=== PATIENT | female | born 1980 | race Caucasian/White ===

== ENCOUNTER 2020-02-26 21:23 | Emergency (ER) | payer OTHER ==
[~2020-02-26] VITALS: Ht 170.2 cm; Wt 60.9 kg
[~2020-02-26 21:23] MED LIST: ASPI-630 PO; ATOR40TA PO; MELA3TAB4 PO; SUMA50TA3 PO; TOPI25TA7 PO
--- NOTE | 2020-02-26 21:48 | PHYS DOC ---
Past Medical History Smoking Status: Never Smoker General Adult EDM: Chief Complaint: HEADACHE HPI: HPI: Patient is a 39 year old female who presents with complaints of bifrontal headache. Patient reports that she was at her home having dinner this evening with her when she began to have a headache. This started about 730 and was bifrontal in nature. It was associated with photophobia, nausea and over the next hour worsened. She denies any focal neurological changes. She reports that the headache is similar to her previous migraines but is so bad that she is finding it difficult to give a adequate history. She told me a couple of times that she just did not know in response to questions. 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 Review of Systems: Review of Systems: Constitutional: Denies fever or chills. [] Eyes: Denies change in visual acuity. [] HENT: Denies nasal congestion or sore throat. [] Respiratory: Denies cough or shortness of breath. [] Cardiovascular: Denies chest pain or edema. [] GI: Denies abdominal pain, nausea, vomiting, bloody stools or diarrhea. [] : Denies dysuria. [] Musculoskeletal: Denies back pain or joint pain. [] Integument: Denies rash. [] Neurologic: See HPI. [] Endocrine: Denies polyuria or polydipsia. [] Lymphatic: Denies swollen glands. [] Psychiatric: Denies depression or anxiety. [] Heart Score: Risk Factors: Risk Factors: DM, Current or recent (<one month) smoker, HTN, HLP, family history of CAD, obesity. Risk Scores: Score 0 - 3: 2.5% MACE over next 6 weeks - Discharge Home Score 4 - 6: 20.3% MACE over next 6 weeks - Admit for Clinical Observation Score 7 - 10: 72.7% MACE over next 6 weeks - Early Invasive Strategies Allergies: Allergies: Allergies Coded Allergies Type Severity Reaction Last Updated Verified No Known Drug Allergies 07/25/19 No Physical Exam: PE: Constitutional: Well developed, well nourished, no acute distress, non-toxic appearance. [] HENT: Normocephalic, atraumatic, bilateral external ears normal, oropharynx moist, no oral exudates, nose normal. [] Eyes: PERRLA, EOMI, conjunctiva normal, no discharge. [] Neck: Range of motion limited secondary to patient cooperation no tenderness, supple, no stridor. [] Cardiovascular:Heart rate regular rhythm, no murmur [] Lungs & Thorax: Bilateral breath sounds clear to auscultation [] Abdomen: Bowel sounds normal, soft, no tenderness, no masses, no pulsatile masses. [] Skin: Warm, dry, no erythema, no rash. [] Back: No tenderness, no CVA tenderness. [] Extremities: No tenderness, no cyanosis, no clubbing, ROM intact, no edema. [] Neurologic: Alert and oriented X 3, normal motor function, normal sensory function, no focal deficits noted. [] Psychologic: Affect normal, judgement normal, mood normal. [] Current Patient Data: Labs: Laboratory Tests Test 02/26/20 21:38 Glucose (Fingerstick) 108 mg/dL (70-99) H EKG: EKG: [] Radiology/Procedures: Radiology/Procedures: [] Course & Med Decision Making: Course & Med Decision Making Pertinent Labs and Imaging studies reviewed. (See chart for details) 2344-patient was seen and reevaluated. Patient reports that her headache has resolved for the most part and is seems to be coming back mildly at times. I discussed with her the results of her testing, treatment plan and reasons to return and need for follow-up. [] Erickson Disclaimer: Erickson Disclaimer: This electronic medical record was generated, in whole or in part, using a voice recognition dictation system. Departure Departure Impression: Primary Impression: Common migraine with intractable migraine Disposition: HOME, SELF-CARE Condition: IMPROVED Referrals: UNKNOWN PCP NAME (PCP) ELENA CASANOVA MD Patient Instructions: Migraine Headache Additional Instructions: See list of primary care providers to follow-up with. Consider using amitriptyline or propanolol for prophylaxis. This will have to be obtained through your PCP or neurologist. Justicifation of Admission Dx: Justifications for Admission: Justification of Admission Dx: N/A NIHSS Stroke Scale NIH Stroke Scale: NIH Stroke Scale Response (Comments) Value Level of Consciousness: 0 Alert/Responsive 0 LOC Questions: 0 Answers both correctly 0 LOC Commands: 0 Performs both tasks 0 Best Gaze: 0 Normal 0 Visual: 0 No visual loss 0 Facial Palsy: 0 Normal, symmetrical 0 Motor - Left Arm 0 No drift 0 Motor - Right Arm 0 No drift 0 Motor - Left Leg 0 No drift 0 Motor: Right Leg 0 No drift 0 Limb Ataxia: 0 Absent 0 Sensory: 1 Mid to moderate loss 1 Best Language: 0 Normal 0 Dysathria: 0 Normal 0 Extinction and Inattention: 0 Normal 0 Total 1 HAZEL TERRY MD Feb 26, 2020 21:48
--- NOTE | 2020-02-26 21:56 | RAD ---
CT HEAD WO CONTRAST Date: 02/26/2020 9:41 PM Clinical Indication: Reason: HEADACHE CODE STROKE / Spl. Instructions: / History: Comparison: 07/25/2019. Technique: 5 mm axial tomographic images were obtained of the head without contrast. These were viewed on brain and bone windows. One or more of the following dose reduction techniques were utilized: Automated exposure control (AEC), Adjustment of mA and/or kV according to patient size, Use of iterative reconstruction technique such as ASiR, CT scan done according to ALARA and image gently/image wisely Findings: No intra- or extra-axial mass or fluid collection. No acute hemorrhage. Ex vacuo dilatation of the left lateral ventricle. The roberts-white matter junction is normal. The subarachnoid cisterns are patent. Large area of encephalomalacia in the left MCA territory. The visualized paranasal sinuses are normal. The visualized portions of the orbits and globes are normal. The mastoid air cells are clear. The heel lift gouger topogram shows no lytic lesion or fracture. Impression: No acute hemorrhage or large territory roberts-white loss. Large area of left MCA territory encephalomalacia. Findings were called to Dr. Gates at 9:52 PM on 02/26/2020 FOR INTERNAL CODING PURPOSES RESULT CODE: (C) Electronically signed by: Kulwant Buckley MD (02/26/2020 9:53 PM) [facility]
[2020-02-26 22:00] LABS: BASO % 1 % (0-3); EOS # 0.1 x10^3/uL (0.0-0.7); EOS % 2 % (0-3); HEMATOCRIT 38.4 % (36.0-47.0); LYMPH # 2.9 x10^3/uL (1.0-4.8); LYMPH % 43 % (24-48); MEAN CORPUSCULAR HEMOGLOBIN 30 pg (25-35); MEAN CORPUSCULAR HGB CONC 34 g/dL (31-37); MEAN CORPUSCULAR VOLUME 90 fL (79-100); MONO # 0.5 x10^3/uL (0.0-1.1); MONO % 7 % (0-9); NEUT # 3.2 x10^3/uL (1.8-7.7); NEUT % 48 % (31-73); PLATELET COUNT 220 x10^3/uL (140-400); RED BLOOD COUNT 4.27 x10^6/uL (3.50-5.40); RED CELL DISTRIBUTION WIDTH 12.3 % (11.5-14.5); WHITE BLOOD COUNT 6.8 x10^3/uL (4.0-11.0)
[2020-02-26 22:09] LABS: PROTHROMBIN TIME PATIENT 13.6 SEC (11.7-14.0)
[2020-02-26 22:24] LABS: CALCIUM 9.1 mg/dL (8.5-10.1); CREATININE 0.9 mg/dL (0.6-1.0); GFR 70.1; POTASSIUM 3.6 mmol/L (3.5-5.1)
[2020-02-26 22:30] LABS: ALBUMIN 4.3 g/dL (3.4-5.0); ALBUMIN/GLOBULIN RATIO 1.1 (1.0-1.7); TOTAL BILIRUBIN 0.6 mg/dL (0.2-1.0); TOTAL PROTEIN 8.1 g/dL (6.4-8.2)
[2020-02-26] MEDS ORDERED: MAGNESIUM SULFATE 1GM 100 ML IV ONE (22:30)
[2020-02-26] MEDS ORDERED: diphenhydrAMINE 50 MG/ML VIAL IVP ONE (22:30)
[2020-02-26] MEDS ORDERED: IV NORMAL SALINE 500ML BAG 500 ML IV ONE (22:30)
[2020-02-26] MEDS ORDERED: KETOROLAC 30 MG/ML VIAL. IVP ONE (22:30)
[2020-02-26] MEDS ORDERED: methylPREDNISolone SOD SUCC PF 125 MG/2 ML VIAL. IV ONE (22:30)
[2020-02-26] MEDS ORDERED: METOCLOPRAMIDE HCL 10 MG/2 ML VIAL. IVP ONE (22:30)
--- NOTE | 2020-02-26 22:30 | RAD ---
CHEST AP ONLY INDICATION: Reason: STROKE PROTOCOL / Spl. Instructions: / History: . COMPARISON STUDY: None. FINDINGS: Lungs: Normal lung volume. No pulmonary mass or consolidation. The tracheobronchial tree and hilar structures are normal. Pleura: No pleural effusion or pneumothorax. Heart and Mediastinum: The cardiomediastinal silhouette is normal. The great vessels of the thorax are normal. Bones and Soft Tissues: The bones and soft tissues are within normal limits. IMPRESSION: No acute cardiopulmonary process. Electronically signed by: Kulwant Buckley MD (02/26/2020 10:27 PM) [facility]
[2020-02-26 23:16] LABS: BILIRUBIN,URINE NEGATIVE (NEG); CLARITY,URINE CLEAR; COLOR,URINE YELLOW; NITRITE,URINE NEGATIVE (NEG); PROTEIN,URINE NEGATIVE (NEG-TRACE); UROBILINOGEN,URINE 0.2 mg/dL (0.2 mg/dL)
[2020-02-26 23:22] LABS: BACTERIA,URINE 0 /HPF (0-FEW); RBC,URINE OCC /HPF (0-2); SQUAMOUS EPITHELIAL CELL,UR MOD /LPF; WBC,URINE OCC /HPF (0-4)
[2020-02-26 23:45] VITALS: BP 94/58
--- NOTE | 2020-02-27 12:25 | EKG ---
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
== END 2020-02-27 00:07 | disposition home or self-care (01) ==
LOC: ER 21:23
DX: G43.019 Migraine without aura, intractable, without status migrainosus (principal); H53.149 Visual discomfort, unspecified; R11.0 Nausea
CPT/HCPCS: 36415; 70450; 71045; 80053; 81001; 82962; 85025; 85610; 85730; 93005; 96365; 96375; 99285; J1200; J1885; J2765; J2930; J3475; J7040

== ENCOUNTER → 2020-11-24 | Outpatient (CLI) | payer OTHER ==
[~2020-11-24] MED LIST changes: +CARB100C4 PO
--- NOTE | 2020-11-24 13:00 | PDOC1 ---
INITIAL PAIN CONSULT DATE OF SERVICE: DOS: DATE: 11/24/20 TIME: 12:52 CHIEF COMPLAINT: Chief Complaint: Migraine headache with right facial pain Post stroke pain Trigeminal neuralgia right side HISTORY OF PRESENT ILLNESS: 40-year-old female presents with history of pain status post stroke in 2013. Patient has had right-sided symptoms since the stroke with significant pain in the upper extremity lower extremity sent to the torso chest front back anterior posterior aspects of the right side of the body since that time. Patient has abdul d migraine headaches as well been treated with several migraine headache medications including Topamax and amitriptyline as well as propranolol without significant decrease in pain patient was given a diagnosis of trigeminal neuralgia sometime in the past and has been on Tegretol with good results by about 50% improvement with the Tegretol most days. Patient reports that about 3 days at a week though she feels very lightheaded and off-balance after taking the Tegretol. Patient reports still significant facial pain especially pain around to the ear on the right side no specific disturbances in vision but very significant pain along with the classic migraine headache symptoms that she is having on the right side. Patient reports her disability rating 0-10 10 being the worst is a 5 in all categories family home responsibilities recreation occupation social activity sexual behavior life support activities and self-care activities. Patient is had no other formal therapies or treatments at this time. 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, atrial septal defect status post repair 2014 PREVIOUS SURGERIES: Past Surgical Hx: Atrial septal defect repair in 2014 CURRENT MEDICATIONS: Current Meds: Active Scripts Medications Dose Route/Sig Max Daily Dose Days Date Category Carbamazepine 100 Mg Cpmp.12hr 2 Cap PO BID 30 11/24/20 Reported Imitrex (Sumatriptan Succinate) 50 Mg Tablet 0.5 Tab PO Q8H PRN 30 07/27/19 Rx Aspirin 81 Mg Tab.chew 1 Tab PO BID 07/25/19 Reported Lipitor (Atorvastatin Calcium) 40 Mg Tablet 1 Tab PO QHS 07/25/19 Reported ALLERGIES; Allergies: Coded Allergies: No Known Drug Allergies (Unverified , 07/25/19) FAMILY HISTORY: Family Hx: Depression in patient's mother SOCIAL HISTORY: Social Hx: Patient does not drink alcohol does not smoke or use any illegal illicit or recreational drugs is lives with her spouse has 4 children living home lives locally in [place] REVIEW OF SYSTEMS: ROS: Positive for those items mentioned in history of present illness, all systems are reviewed, otherwise negative ,and are complete full and well-documented on patient's chart. PHYSICAL EXAM: VS: Blood pressure is 145/82 pulse 74 respirations 16 temperature 98.0 F height is 5 foot 7 inches weight is 148 pounds PE: PHYSICAL EXAMINATION: GENERAL: The patient is awake, alert, oriented, appropriate, very pleasant demeanor HEENT: Shows normocephalic, atraumatic. Extraocular movements are intact and symmetrical. Pupils equal round reactive to light and accommodation. Oral cavity: Mucous membranes moist and pink. Dentition is intact. NECK: Shows anterior throat supple without palpable lymphadenopathy noted. Swallow reflex symmetrical. Full rotation cervical spine without difficulty including far lateral rotation past 45 degrees closer to 90 degrees well is full extension full forward flexion without pain reported. CHEST: Shows normal on inspection. Breath sounds are clear bilaterally, no rales rhonchi or wheezes auscultated. HEART: Shows S1, S2 clear. No murmurs auscultated. ABDOMEN: Soft, nontender, nondistended. No palpable organomegaly is noted. BACK: Shows spine grossly in the midline. Normal-appearing cervical lordotic curvature. There is normal thoracic kyphosis, some minor flattening of the lumbar lordotic curvature. Lumbar paraspinous muscles show symmetrical on inspection, on palpation shows no significant tenderness throughout. The patient has good rotational motion of the lumbar spine, both laterally as well as extension and flexion without significant difficulty. No tenderness over the spinous processes, sacrum or sacroiliac regions. EXTREMITIES: Lower extremities show deep tendon reflexes 2+ in the patellar and tendo calcaneus tendons. Motor exam is 5 on a scale of 5 with right dorsiflexion, extension, quadriceps and hamstring flexion and 5/5 on the left. Peripheral pulses are 1 posterior tibial. No peripheral edema is noted bilaterally. Lower extremities are warm and dry to touch, equal in color and appearance. Upper extremity show deep tendon reflexes 2+ in the bicep and tricep tendons motor exam strong with master cook strength rated 5 out of 5 as is bicep and tricep flexion bilaterally. Peripheral pulses are 2+ radial no edema is present bilateral upper extremities. Skin: Normal turgor no bruises rashes sores or other lesions. IMPRESSION: Impression: 40-year-old female with approximate 1 year history increasing facial pain, right-sided Migraine headache right-sided Trigeminal neuralgia right-sided Post stroke pain right sided Plan: Options were discussed with the patient patient's spouse who accompanied her visit today. We discussed various medication management as well as therapies and interventional techniques. Patient would like to pursue interventional techniques we discussed trigeminal nerve block as well as sphenop alatine ganglion blocks. We will have patient return after preauthorization for his right-sided sphenopalatine ganglion block. In the meantime patient will continue with carbamazepine as prescribed and may move to twice daily dosing if side effects allow. MIKAYLA CRABTREE MD November 24, 2020 13:00
== END | disposition home or self-care (01) ==
LOC: PNCL 11:08
PROVIDERS: ATTEND Anesthesiology
DX: G43.809 Other migraine, not intractable, without status migrainosus (principal); G50.0 Trigeminal neuralgia; E78.00 Pure hypercholesterolemia, unspecified; J45.909 Unspecified asthma, uncomplicated; Z86.73 Personal history of transient ischemic attack (TIA), and cerebral infarction without residual deficits; Z87.74 Personal history of (corrected) congenital malformations of heart and circulatory system; Z79.899 Other long term (current) drug therapy; Z98.890 Other specified postprocedural states; Z79.82 Long term (current) use of aspirin
CPT/HCPCS: 99205; G0463

== ENCOUNTER → 2020-12-07 | Outpatient (CLI) | payer OTHER ==
[~2020-12-07] MED LIST changes: +LIDOCAINE 2% VISCOUS 15 ML SOLUTION. ONE; +SERT25TA PO
--- NOTE | 2020-12-07 13:16 | PDOC ---
Progress Note - Pain Clinic Date of Service: DOS: DATE: 12/07/20 TIME: 13:08 Diagnosis: Dx: Trigeminal neuralgia with post stroke pain Atypical facial pain Migraine headache History or Present Illness: HPI: 40-year-old female returns in follow-up status post initial evaluation preauthorization for right sphenopalatine ganglion block. Patient is obtained this with like to proceed report still significant facial pain on the right side as previously also some right-sided weakness in the upper and lower extremity secondary to previous CVA. Patient reports no new motor or sensory deficits no new findings or changes. Patient rates her pain as 8 on scale 10 is worse over the past week 5 on average to its least and is a 5 today. Patient scribes the pain is off and on but intense can be shooting tight stabbing cramping and burning and severe. Physical Exam: VS: Blood pressure is 120/89 pulse 85 respirations 18 temperature 98.0 F weight is 146 pounds PE: PHYSICAL EXAMINATION: GENERAL: The patient is awake, alert, oriented, appropriate, very pleasant demeanor HEENT: Shows normocephalic, atraumatic. Extraocular movements are intact and symmetrical. Pupils are equal round reactive to light and accommodation. Oral cavity: Mucous membranes moist and pink. Dentition is intact. Only mild tenderness with palpation over the right zygomatic arch without radiation. NECK: Shows anterior throat supple without palpable lymphadenopathy noted. Swallow reflex symmetrical. Full rotation cervical spine without significant difficulty or limitation. ABDOMEN: Soft, nontender, nondistended. No palpable organomegaly is noted. No rebound or guarding demonstrated. BACK: Shows spine grossly in the midline. Normal-appearing cervical lordotic cu rvature. There is slightly increased thoracic kyphosis, some minor flattening of the lumbar lordotic curvature. EXTREMITIES: Upper extremities show deep tendon reflexes 2+ in the biceps and triceps tendons. Motor exam is 5 on a scale of 5 with right steward/stewardess smoke room strength, biceps and triceps flexion and 5/5 on the left. Peripheral pulses are 2+ radial. No peripheral edema is noted bilaterally. Upper extremities are warm and dry. SKIN: Shows warm and dry, good turgor. No edema. No sores, rashes or bruising throughout. Procedure: Procedure: Options were discussed with the patient. Patient's old chart was reviewed as her current medication regimen updated current review of systems updated today as well. We will proceed with a transnasal right-sided sphenopalatine ganglion block today. Risk were discussed including but not limited to bleeding infection possibility of spread of local anesthetic and numbness side effects of local anesthetic as well as poor results regarding pain control. Patient understands wished to proceed. Patient will return to clinic in approximately 2 weeks for follow-up, was counseled as to return appointment activity level and side effects to be aware of. Medication Injected: Med Injected: Patient supine position using nasal swabs cotton-tipped and 2% viscous lidocaine swabs were soaked in lidocaine and x2 inserted via the right nares past the turbinates in a perpendicular angle to the table to the posterior aspect of the nasopharyngeal sinus. Additional 2% viscous lidocaine was then applied to the probe stick x3 over a 25-minute period. After 25 minutes, nasal swabs were removed. Patient tolerated the procedure well and had no immediate complications. Condition at Discharge: Condition at Discharge: Condition at discharge stable, patient alert the procedure well and had no complications. MIKAYLA CRABTREE MD December 07, 2020 13:16
--- NOTE | 2020-12-07 13:17 | PDOC4 ---
PROCEDURE Procedure Patient was consented for right sided sphenopalatine ganglion block, transnasal approach. Risks are discussed including not limited to bleeding infection possibility of spread of local anesthetic and numbness side effects of local anesthetic and poor results regarding pain control. Patient understands wished to proceed. Patient supine position using nasal swabs cotton-tipped and 2% viscous lidocaine swabs were soaked in lidocaine and x2 inserted via the right nares past the turbinates in a perpendicular angle to the table to the posterior aspect of the nasopharyngeal sinus. Additional 2% viscous lidocaine was then applied to the probe stick x3 over a 25-minute period. After 25 minutes, nasal swabs were removed. Patient tolerated the procedure well and had no immediate complications. MIKAYLA CRABTREE MD December 07, 2020 13:16
== END | disposition home or self-care (01) ==
LOC: PNCL 10:56
PROVIDERS: ATTEND Anesthesiology
DX: G50.0 Trigeminal neuralgia (principal); G50.1 Atypical facial pain; G43.909 Migraine, unspecified, not intractable, without status migrainosus; E78.00 Pure hypercholesterolemia, unspecified; J45.909 Unspecified asthma, uncomplicated; Z86.73 Personal history of transient ischemic attack (TIA), and cerebral infarction without residual deficits; Z79.899 Other long term (current) drug therapy; Z98.890 Other specified postprocedural states; Z79.82 Long term (current) use of aspirin; Z88.8 Allergy status to other drugs, medicaments and biological substances
CPT/HCPCS: 64505

== ENCOUNTER 2021-02-28 18:53 | Emergency (ER) | payer OTHER ==
[~2021-02-28] VITALS: Ht 170.2 cm; Wt 65.4 kg
[~2021-02-28 18:53] MED LIST changes: -LIDOCAINE 2% VISCOUS 15 ML SOLUTION. ONE
[2021-02-28] MEDS ORDERED: ONDANSETRON PF 4 MG/2 ML VIAL. ONE (19:20)
[2021-02-28 19:30] LABS: BASO % 1 % (0-3); EOS # 0.1 x10^3/uL (0.0-0.7); EOS % 2 % (0-3); HEMATOCRIT 38.1 % (36.0-47.0); HEMOGLOBIN 13.1 g/dL (12.0-15.5); LYMPH # 2.5 x10^3/uL (1.0-4.8); LYMPH % 42 % (24-48); MEAN CORPUSCULAR HEMOGLOBIN 32 pg (25-35); MEAN CORPUSCULAR HGB CONC 34 g/dL (31-37); MEAN CORPUSCULAR VOLUME 92 fL (79-100); MONO # 0.4 x10^3/uL (0.0-1.1); MONO % 7 % (0-9); NEUT % 49 % (31-73); PLATELET COUNT 213 x10^3/uL (140-400); RED BLOOD COUNT 4.15 x10^6/uL (3.50-5.40); RED CELL DISTRIBUTION WIDTH 12.3 % (11.5-14.5)
[2021-02-28] MEDS ORDERED: ONDANSETRON PF 4 MG/2 ML VIAL. IVP ONE ×2 (19:30→19:45)
--- NOTE | 2021-02-28 19:36 | RAD ---
Exam: CT head INDICATION: Headache TECHNIQUE: Sequential axial images through the head were obtained without the administration of IV co ntrast. Exposure: One or more of the following in the visualized dose reduction techniques were utilized for this examination: 1. Automated exposure control 2. Adjustment of the MA and/or KV according to patient size 3. Use of iterative of reconstructive technique Comparisons: 07/26/2019 FINDINGS: No focal parenchymal lesion or hemorrhage is identified. There is no midline shift or sulcal effaceme nt. Chronic left MCA infarct is again seen. No acute vascular territory infarction is identified. Burris-wh ite distinction is preserved. The ventricular system is within normal limits without compression hydrocephalus. The basal cisterns are well maintained. The visualized portions of the paranasal sinuses and mastoid air cells are well-pneumatized. No acute fractures. IMPRESSION: No acute intracranial abnormality. FOR INTERNAL CODING PURPOSES Critical result: Findings discussed with Jimy at 02/28/2021 7:31 PM. RESULT CODE: (C) Electronically signed by: Arie Moran MD (02/28/2021 7:34 PM) [facility]
[2021-02-28 19:37] LABS: CALCIUM 8.6 mg/dL (8.5-10.1); CREATININE 0.8 mg/dL (0.6-1.0); GFR 79.9; POTASSIUM 3.9 mmol/L (3.5-5.1)
[2021-02-28 19:43] LABS: ALBUMIN 4.1 g/dL (3.4-5.0); ALBUMIN/GLOBULIN RATIO 1.2 (1.0-1.7); TOTAL BILIRUBIN 0.2 mg/dL (0.2-1.0); TOTAL PROTEIN 7.4 g/dL (6.4-8.2)
[2021-02-28] MEDS ORDERED: KETOROLAC 30 MG/ML VIAL. IVP ONE (19:45)
[2021-02-28] MEDS ORDERED: IOHEXOL 350 MG/ML 100 ML VIAL. IV ONE (19:45)
[2021-02-28] MEDS ORDERED: CONTRAST GIVEN. MC PRN (19:45)
--- NOTE | 2021-02-28 19:58 | RAD ---
CTA head and neck with contrast dated 02/28/2021 Comparison: Noncontrast head CT dated same day. CTA dated 07/27/2019. CLINICAL INDICATION: Headache Technique: CTA of the head and neck was acquired following the intravenous administration of 75 cc Omnipaque 350 . Thin cut coronal and sagittal MIPS reconstructions and 3-D rotational reconstruction. One or more of the following individualized dose reduction techniques were utilized for this examinat ion: 1. Automated exposure control 2. Adjustment of the mA and/or kV according to patient size 3. Use of iterative reconstruction technique. Carotid Stenosis calculations for CT, MR, and conventional angiography are based upon measurements of the distal ICA diameter in accordance with the NASCET methodology. Stenosis calculations for carotid ultrasound studies are derived from validated velocity criteria which are known to correlate with th e NASCET methodology. FINDINGS: Study is limited due to diminished contrast bolus. Aortic arch is normal in caliber. Arch anatomy is standard. Bilateral subclavian arteries and vertebral arteries are patent. The right vertebral artery is somewhat hypoplastic relative to the left side. No intimal flap or focal stenosis to the skull ba se. Intradural vertebral arteries are patent. Basilar artery is patent. Bilateral skein dyer are small but grossly patent. The common carotid arteries are patent. No significant calcific or soft plaque at the bilateral carot id bifurcation. The right ICA is patent to the skull base. There is long segment high-grade narrowing of the left ICA just beyond the bifurcation, estimated at 70-80% stenosis. The vessel is narrowed to the skull base and there may be a small intraluminal web just proximal to the area of narrowing. Fin dings are similar to prior study. The petrous and cavernous internal carotids are not well evaluated due to poor propagation of contras t bolus. The cavernous left ICA is small and poorly visualized but is likely not significant changed from prior study. There is some flow within the supraclinoid segments with filling of the LUIS ALFREDO and MCA branches. Patent anterior communicating artery. The distal vessels are not well evaluated. Imaging the brain shows focal wedge-shaped zone of low density in the MCA distribution on the left wi th some ex vacuo dilatation of the left ventricle, unchanged. No new areas of altered attenuation. Du ral venous sinuses are grossly patent. Visualized soft tissue structures are unremarkable. Limited images of lung apices are clear. No signi ficant soft tissue abnormality. IMPRESSION: 1. High-grade narrowing of the cervical left internal carotid artery throughout its course to the [facility] base, estimated at 70-80% stenosis. This is similar to prior study. 2. The intracranial vasculature is not well evaluated due to poor propagation of contrast bolus. High -grade stenosis of the cavernous left ICA is probably unchanged. There is some flow distally into the MCA and LUIS ALFREDO branches. 3. Vertebral basilar system is patent and the right carotid system appears to be patent. 4. Remote MCA distribution infarct on the left Electronically signed by: Elian Aguilar MD (02/28/2021 7:56 PM) [facility]
--- NOTE | 2021-02-28 20:25 | PHYS DOC ---
Past Medical History Past Medical History: CVA, High Cholesterol, Migraines Additional Past Medical Histor: ARTERIAL DISSECTION, Past Surgical History: Other Additional Past Surgical Histo: "HOLE PATCHED BETWEEN ATRIUMS OF HEART IN 2015" Smoking Status: Never Smoker Alcohol Use: None General Adult EDM: Chief Complaint: NEURO SYMPTOMS/DEFICITS HPI: HPI: Patient is a 40 year old female with past medical history of migraine headaches and CVA with residual paresthesia without focal weakness presents for evaluation of headache. Patient states around 1500 hrs. sudden onset of severe frontal headache. Patient states pain is progressed to become worse since onset. Patient has associated nausea and photophobia. Patient states she has a sensation of weakness in her right lower extremity. Patient arrived by private vehicle she ambulated into the ER with a normal steady gait. On exam I do not see any focal neurological weakness. She does not have a facial droop or s lurred speech she does not have any drift in her extremities. Residual symptoms from previous CVA-- Chonic paresthesia and dysarthia. DIRECTOR PHYSICAL Patient took Ibuprofen 400mg and Asprin. Requesting pain medications that do not sedate. NIH 2--- No new findings. CT without contrast discussed with radiologist and negative. CTA no acute change-- no large vessel occlusion Review of Systems: Review of Systems: Constitutional: Denies fever or chills. [] Eyes: Denies change in visual acuity. [] HENT: Denies nasal congestion or sore throat. [] Respiratory: Denies cough or shortness of breath. [] Cardiovascular: Denies chest pain or edema. [] GI: Denies abdominal pain, nausea, vomiting, bloody stools or diarrhea. [] : Denies dysuria. [] Musculoskeletal: Denies back pain or joint pain. [] Integument: Denies rash. [] Neurologic: positive headache, positive paresthesia, MARY focal weakness or sensory changes. [] Endocrine: Denies polyuria or polydipsia. [] Lymphatic: Denies swollen glands. [] Psychiatric: Denies depression or anxiety. [] Heart Score: C/O Chest Pain: N/A Risk Factors: Risk Factors: DM, Current or recent (<one month) smoker, HTN, HLP, family history of CAD, obesity. Risk Scores: Score 0 - 3: 2.5% MACE over next 6 weeks - Discharge Home Score 4 - 6: 20.3% MACE over next 6 weeks - Admit for Clinical Observation Score 7 - 10: 72.7% MACE over next 6 weeks - Early Invasive Strategies Current Medications: Current Medications Medications (Trade) Dose Ordered Sig/Kelvin Start Time Stop Time Status Last Admin Dose Admin Aspirin (Aspirin Chewable) 324 mg 1X ONCE 02/28/21 20:30 02/28/21 20:31 Info (CONTRAST GIVEN -- Rx MONITORING) 1 each PRN DAILY PRN 02/28/21 19:45 03/02/21 19:44 Iohexol (Omnipaque 350 Mg/ml) 75 ml 1X ONCE 02/28/21 19:45 02/28/21 19:46 DC 02/28/21 19:44 75 ML Ketorolac Tromethamine (Toradol 30mg Vial) 30 mg 1X ONCE 02/28/21 19:45 02/28/21 19:46 DC Ondansetron HCl (Zofran) 4 mg 1X ONCE 02/28/21 19:45 02/28/21 19:46 DC Allergies: Allergies: Allergies Coded Allergies Type Severity Reaction Last Updated Verified No Known Drug Allergies 07/25/19 No Physical Exam: PE: Constitutional: Well developed, well nourished, no acute distress, non-toxic appearance. [] HENT: Normocephalic, atraumatic, bilateral external ears normal, oropharynx moist, no oral exudates, nose normal. [] Eyes: PERRLA, EOMI, conjunctiva normal, no discharge. [] Neck: Normal range of motion, no tenderness, supple, no stridor. [] Cardiovascular:Heart rate regular rhythm, no murmur [] Lungs & Thorax: Bilateral breath sounds clear to auscultation [] Abdomen: Bowel sounds normal, soft, no tenderness, no masses, no pulsatile masses. [] Skin: Warm, dry, no erythema, no rash. [] Back: No tenderness, no CVA tenderness. [] Extremities: No tenderness, no cyanosis, no clubbing, ROM intact, no edema. [] Neurologic: Alert and oriented X 3, normal motor function, normal sensory function, no focal deficits noted. [] Psychologic: Affect normal, judgement normal, mood normal. [] Current Patient Data: Labs: Laboratory Tests Test 02/28/21 19:05 White Blood Count 6.0 x10^3/uL (4.0-11.0) Red Blood Count 4.15 x10^6/uL (3.50-5.40) Hemoglobin 13.1 g/dL (12.0-15.5) Hematocrit 38.1 % (36.0-47.0) Mean Corpuscular Volume 92 fL (79-100) Mean Corpuscular Hemoglobin 32 pg (25-35) Mean Corpuscular Hemoglobin Concent 34 g/dL (31-37) Red Cell Distribution Width 12.3 % (11.5-14.5) Platelet Count 213 x10^3/uL (140-400) Neutrophils (%) (Auto) 49 % (31-73) Lymphocytes (%) (Auto) 42 % (24-48) Monocytes (%) (Auto) 7 % (0-9) Eosinophils (%) (Auto) 2 % (0-3) Basophils (%) (Auto) 1 % (0-3) Neutrophils # (Auto) 3.0 x10^3/uL (1.8-7.7) Lymphocytes # (Auto) 2.5 x10^3/uL (1.0-4.8) Monocytes # (Auto) 0.4 x10^3/uL (0.0-1.1) Eosinophils # (Auto) 0.1 x10^3/uL (0.0-0.7) Basophils # (Auto) 0.0 x10^3/uL (0.0-0.2) Sodium Level 140 mmol/L (136-145) Potassium Level 3.9 mmol/L (3.5-5.1) Chloride Level 105 mmol/L (98-107) Carbon Dioxide Level 29 mmol/L (21-32) Anion Gap 6 (6-14) Blood Urea Nitrogen 12 mg/dL (7-20) Creatinine 0.8 mg/dL (0.6-1.0) Estimated GFR (Cockcroft-Gault) 79.9 BUN/Creatinine Ratio 15 (6-20) Glucose Level 86 mg/dL (70-99) Calcium Level 8.6 mg/dL (8.5-10.1) Total Bilirubin 0.2 mg/dL (0.2-1.0) Aspartate Amino Transferase (AST) 12 U/L (15-37) L Alanine Aminotransferase (ALT) 20 U/L (14-59) Alkaline Phosphatase 59 U/L (46-116) Total Protein 7.4 g/dL (6.4-8.2) Albumin 4.1 g/dL (3.4-5.0) Albumin/Globulin Ratio 1.2 (1.0-1.7) Laboratory Tests 02/28/21 19:05 Laboratory Tests 02/28/21 19:05 EKG: EKG: [] Performed at 1906 Rate 81 Normal sinus rhythm No ST elevation No ST depression No acute MA Radiology/Procedures: Radiology/Procedures: [] Impression: Technique: CTA of the head and neck was acquired following the intravenous administration of 75 cc Omnipaque 350. Thin cut coronal and sagittal MIPS reconstructions and 3-D rotational reconstruction. One or more of the following individualized dose reduction techniques were utilized for this examination: 1. Automated exposure control 2. Adjustment of the mA and/or kV according to patient size 3. Use of iterative reconstruction technique. Carotid Stenosis calculations for CT, MR, and conventional angiography are based upon measurements of the distal ICA diameter in accordance with the NASCET methodology. Stenosis calculations for carotid ultrasound studies are derived from validated velocity criteria which are known to correlate with the NASCET methodology. FINDINGS: Study is limited due to diminished contrast bolus. Aortic arch is normal in caliber. Arch anatomy is standard. Bilateral subclavian arteries and vertebral arteries are patent. The right vertebral artery is somewhat hypoplastic relative to the left side. No intimal flap or focal stenosis to the skull base. Intradural vertebral arteries are patent. Basilar artery is patent. Bilateral mailroom clerk are small but grossly patent. The common carotid arteries are patent. No significant calcific or soft plaque at the bilateral carotid bifurcation. The right ICA is patent to the skull base. There is long segment high-grade narrowing of the left ICA just beyond the bifurcation, estimated at 70-80% stenosis. The vessel is narrowed to the skull base and there may be a small intraluminal web just proximal to the area of narrowing. Findings are similar to prior study. The petrous and cavernous internal carotids are not well evaluated due to poor propagation of contrast bolus. The cavernous left ICA is small and poorly visualized but is likely not significant changed from prior study. There is some flow within the supraclinoid segments with filling of the LUIS ALFREDO and MCA branches. Patent anterior communicating artery. The distal vessels are not well evaluated. Imaging the brain shows focal wedge-shaped zone of low density in the MCA distribution on the left with some ex vacuo dilatation of the left ventricle, unchanged. No new areas of altered attenuation. Dural venous sinuses are grossly patent. Visualized soft tissue structures are unremarkable. Limited images of lung apices are clear. No significant soft tissue abnormality. IMPRESSION: 1. High-grade narrowing of the cervical left internal carotid artery throughout its course to the skull base, estimated at 70-80% stenosis. This is similar to prior study. 2. The intracranial vasculature is not well evaluated due to poor propagation of contrast bolus. High-grade stenosis of the cavernous left ICA is probably unchanged. There is some flow distally into the MCA and LUIS ALFREDO branches. 3. Vertebral basilar system is patent and the right carotid system appears to be patent. 4. Remote MCA distribution infarct on the left Course & Med Decision Making: Course & Med Decision Making Pertinent Labs and Imaging studies reviewed. (See chart for details) []Treated with toradol. Patient declined any stroner mediations. Minimal improvement with medications-- does not want anything else. Discussed CT findings with patient. Patient wishes to be discharged home. Patient to follow up with neurology. Erickson Disclaimer: Erickson Disclaimer: This electronic medical record was generated, in whole or in part, using a voice recognition dictation system. NIHSS Stroke Scale NIH Stroke Scale: NIH Stroke Scale Response (Comments) Value Level of Consciousness: 0 Alert/Responsive 0 LOC Questions: 0 Answers both correctly 0 LOC Commands: 0 Performs both tasks 0 Best Gaze: 0 Normal 0 Visual: 0 No visual loss 0 Facial Palsy: 0 Normal, symmetrical 0 Motor - Left Arm 0 No drift 0 Motor - Right Arm 0 No drift 0 Motor - Left Leg 0 No drift 0 Motor: Right Leg 0 No drift 0 Limb Ataxia: 0 Absent 0 Sensory: 1 Mid to moderate loss 1 Best Language: 0 Normal 0 Dysathria: 1 Mild to moderate 1 Extinction and Inattention: 0 Normal 0 Total 2 Departure Departure Impression: Primary Impression: Common migraine with intractable migraine Disposition: 01 HOME / SELF CARE / HOMELESS Condition: STABLE Referrals: UNKNOWN PCP NAME (PCP) ELENA CASANOVA MD Patient Instructions: Migraine Headache Scripts Codeine/Butalbital/Asa/Caffein (ASCOMP WITH CODEINE CAPSULE) 1 Each Capsule 1 EACH PO Q4-6HRS, #14 CAP Prov: ROXANNE HUERTA I DO 02/28/21 ROXANNE HUERTA DO Feb 28, 2021 20:25
[2021-02-28] MEDS ORDERED: ASPIRIN CHEWABLE 81 MG TABLET. PO ONE (20:30)
[2021-02-28 21:16] VITALS: BP 96/44
[2021-02-28] MEDS ORDERED: [UNRECOGNIZED DRUG - CODE] PO (21:35)
== END 2021-02-28 21:50 | disposition home or self-care (01) ==
LOC: ER 18:53
DX: G43.019 Migraine without aura, intractable, without status migrainosus (principal); E78.00 Pure hypercholesterolemia, unspecified; Z86.73 Personal history of transient ischemic attack (TIA), and cerebral infarction without residual deficits
CPT/HCPCS: 36415; 70450; 70496; 70498; 80053; 84484; 85025; 96374; 96375; 99285; J1885; J2405; Q9967

== ENCOUNTER 2021-08-17 02:51 | Emergency (ER) | payer OTHER ==
[~2021-08-17] VITALS: Ht 170.2 cm; Wt 64.6 kg
[~2021-08-17 02:51] MED LIST changes: +[UNRECOGNIZED DRUG - CODE] PO
--- NOTE | 2021-08-17 03:28 | PHYS DOC ---
Past Medical History Past Medical History: CVA, High Cholesterol, Migraines Additional Past Medical Histor: ARTERIAL DISSECTION, Past Surgical History: Other Additional Past Surgical Histo: "HOLE PATCHED BETWEEN ATRIUMS OF HEART IN 2015" Smoking Status: Never Smoker Alcohol Use: None General Adult EDM: Chief Complaint: ABDOMINAL PAIN HPI: HPI: Patient is a 41-year-old female presenting for abdominal pain. Onset was 2 days ago without any known mechanism of injury, trauma, ingestion, sick contact or recent travel. Nothing known makes better or worse. Pain initially presented as periumbilical and vague in general, reports that eventually migrated to right lower quadrant where it is been sharp and focal without radiation. States it has been bearable past 24 hours but it awoke her from sleep and is more sharp in nature now prompting her to come in for evaluation. She has no prior history of intra-abdominal abnormalities or surgeries Review of Systems: Review of Systems: Fourteen body systems of review of systems have been reviewed. See HPI for pertinent positives and negative responses, other telles all other systems are negative, non-pertinent or non-contributory Heart Score: C/O Chest Pain: No Risk Factors: Risk Factors: DM, Current or recent (<one month) smoker, HTN, HLP, family history of CAD, obesity. Risk Scores: Score 0 - 3: 2.5% MACE over next 6 weeks - Discharge Home Score 4 - 6: 20.3% MACE over next 6 weeks - Admit for Clinical Observation Score 7 - 10: 72.7% MACE over next 6 weeks - Early Invasive Strategies Allergies: Allergies: Allergies Coded Allergies Type Severity Reaction Last Updated Verified No Known Drug Allergies 07/25/19 No Physical Exam: PE: Constitutional: Well developed, well nourished, no acute distress, non-toxic appearance. HENT: Normocephalic, atraumatic, bilateral external ears normal, oropharynx moist, no oral exudates, nose normal. Eyes: PERRLA, EOMI, conjunctiva normal, no discharge. Neck: Normal range of motion, no tenderness, supple, no stridor. Cardiovascular: Heart rate regular, sinus rhythm, no murmurs rubs or gallops Lungs & Thorax: Bilateral breath sounds clear to auscultation Abdomen: Bowel sounds normal, soft, right lower quadrant pain to palpation with guarding, no rebound, no masses, no pulsatile masses. Skin: Warm, dry, no erythema, no rash. Back: No tenderness, no CVA tenderness. Extremities: No tenderness, no cyanosis, no clubbing, ROM intact, no edema. Neurologic: Alert and oriented X 3, grossly normal motor & sensory function, no focal deficits noted. Psychologic: Anxious affect and mood EKG: EKG: [] Radiology/Procedures: Radiology/Procedures: EXAM: CT ABDOMEN/PELVIS WITH CONTRAST. HISTORY: Right lower quadrant pain. TECHNIQUE: Computed tomography of the abdomen and pelvis was performed after the intravenous administration of iodinated contrast. One or more of the following individualized dose reduction techniques were utilized for this examination: 1. Automated exposure control. 2. Adjustment of the mA and/or kV according to patient size. 3. Use of iterative reconstruction technique. COMPARISON: None. FINDINGS: Lung windows through the visualized portions of the bases reveal no abnormality. Bone windows reveal no suspicious lesions. The liver, gallbladder, spleen, adrenal glands, pancreas and kidneys are unremarkable. There are no pathologically enlarged lymph nodes. There is no evidence of appendicitis. Stool throughout the colon is consistent with constipation. There is no small bowel obstruction. A small amount of free pelvic fluid is likely physiologic. The uterus is mildly enlarged without focal masses. The ovaries are unremarkable by CT. IMPRESSION: 1. Findings consistent with constipation. No acute process. Electronically signed by: Tala Bradley MD (08/17/2021 5:13 AM) [facility] Course & Med Decision Making: Course & Med Decision Making ABCs unremarkable HPI physical exam and comprehensive ER work-up nonconcerning for any emergent or surgical issues Disclosed entirety of ER work-up most consistent with stool burden/constipation as likely etiology of patient's pain As such, propria supportive care practices and strict return precautions discussed at length prior to ER departure Erickson Disclaimer: Erickson Disclaimer: This electronic medical record was generated, in whole or in part, using a voice recognition dictation system. Departure Departure Impression: Primary Impression: Abdominal pain Disposition: HOME / SELF CARE / HOMELESS Condition: STABLE Referrals: UNKNOWN PCP NAME (PCP) Additional Instructions: You have been evaluated in the Emergency Department today for abdominal pain. Your evaluation was not suggestive of any emergent condition requiring medical intervention at this time. However, some abdominal problems make take more time to appear. Therefore, it is important for you to watch for any new symptoms or worsening of your current condition. As disclosed, your Return to the Emergency Department if you experience worsening pain, persistent fevers greater than 100.4, recurrent vomiting, blood in vomit, blood in stool, dark tarry stool, chest pain, difficulty breathing, or any other concerning symptoms. ION LORENZ DO Aug 17, 2021 03:28
[2021-08-17] MEDS ORDERED: fentaNYL PF VIAL 100 MCG/2 ML VIAL IVP ONE (03:30)
[2021-08-17] MEDS ORDERED: IV NORMAL SALINE 1000ML BAG 1,000 ML IV SCH (03:30)
[2021-08-17 03:41] LABS: BASO % 1 % (0-3); EOS # 0.1 x10^3/uL (0.0-0.7); EOS % 1 % (0-3); HEMATOCRIT 35.9 % (36.0-47.0); HEMOGLOBIN 12.2 g/dL (12.0-15.5); LYMPH # 1.5 x10^3/uL (1.0-4.8); LYMPH % 28 % (24-48); MEAN CORPUSCULAR HEMOGLOBIN 31 pg (25-35); MEAN CORPUSCULAR HGB CONC 34 g/dL (31-37); MEAN CORPUSCULAR VOLUME 91 fL (79-100); MONO # 0.5 x10^3/uL (0.0-1.1); MONO % 9 % (0-9); NEUT # 3.3 x10^3/uL (1.8-7.7); NEUT % 62 % (31-73); PLATELET COUNT 223 x10^3/uL (140-400); RED BLOOD COUNT 3.96 x10^6/uL (3.50-5.40); WHITE BLOOD COUNT 5.3 x10^3/uL (4.0-11.0)
[2021-08-17 03:49] LABS: CALCIUM 8.1 mg/dL (8.5-10.1); CREATININE 0.7 mg/dL (0.6-1.0); GFR 92.7; POTASSIUM 3.9 mmol/L (3.5-5.1)
[2021-08-17 03:54] LABS: ALBUMIN 3.7 g/dL (3.4-5.0); ALBUMIN/GLOBULIN RATIO 1.1 (1.0-1.7); TOTAL BILIRUBIN 0.5 mg/dL (0.2-1.0); TOTAL PROTEIN 7.2 g/dL (6.4-8.2)
[2021-08-17] MEDS ORDERED: IOHEXOL 300 MG/ML 100ML VIAL. IV ONE (04:15)
[2021-08-17] MEDS ORDERED: CONTRAST GIVEN. MC PRN (04:15)
--- NOTE | 2021-08-17 05:15 | RAD ---
EXAM: CT ABDOMEN/PELVIS WITH CONTRAST. HISTORY: Right lower quadrant pain. TECHNIQUE: Computed tomography of the abdomen and pelvis was performed after the intravenous administ ration of iodinated contrast. One or more of the following individualized dose reduction techniques w ere utilized for this examination: 1. Automated exposure control. 2. Adjustment of the mA and/or kV according to patient size. 3. Use of iterative reconstruction technique. COMPARISON: None. FINDINGS: Lung windows through the visualized portions of the bases reveal no abnormality. Bone windo ws reveal no suspicious lesions. The liver, gallbladder, spleen, adrenal glands, pancreas and kidneys are unremarkable. There are no p athologically enlarged lymph nodes. There is no evidence of appendicitis. Stool throughout the colon is consistent with constipation. The re is no small bowel obstruction. A small amount of free pelvic fluid is likely physiologic. The uter us is mildly enlarged without focal masses. The ovaries are unremarkable by CT. IMPRESSION: 1. Findings consistent with constipation. No acute process. Electronically signed by: Tala Bradley MD (08/17/2021 5:13 AM) [facility]
[2021-08-17 05:29] VITALS: BP 110/62
--- NOTE | 2021-08-17 16:30 | NUR ---
IP: Informed pt of negative covid test. she verbalized understanding.
== END 2021-08-17 05:47 | disposition home or self-care (01) ==
LOC: ER 02:51
DX: R10.31 Right lower quadrant pain (principal); Z20.822 Contact with and (suspected) exposure to COVID-19; G43.909 Migraine, unspecified, not intractable, without status migrainosus; E78.00 Pure hypercholesterolemia, unspecified; Z86.73 Personal history of transient ischemic attack (TIA), and cerebral infarction without residual deficits
CPT/HCPCS: 36415; 74177; 80053; 83605; 83690; 85025; 87426; 96360; 99285; J7030; Q9967; U0003; U0005